=== PATIENT | female | born 1930 | race Caucasian/White ===

== ENCOUNTER 2018-11-07 05:32 | Emergency (ER) | payer MEDICARE ==
[~2018-11-07] VITALS: Wt 67.6 kg
--- NOTE | ~2018-11-07 | EKG ---
[place], [place] ELECTROCARDIOGRAM REPORT NAME: MEGAN NÚÑEZ UNIT #: [id number] ROOM: DOCTOR: YENY DRAFT REPORT BIRTHDATE: [birth year] [facility] Test Date: 2018-11-07 Test Time: 05:37:56 Pat Name: MEGAN NÚÑEZ Department: Room: Gender: F [employer]: : 1930 Requested By: ARSALAN SOLIZ Order Number: [id number] Reading MD: Eloisa Shell Measurements Intervals [place] Rate: 79 P: 77 TX: 126 QRS: 77 QRSD: 101 T: 76 QT: 396 QTc: 455 Interpretive Statements Sinus rhythm Nonspecific T abnrm, anterolateral leads No previous ECG available for comparison Electronically Signed On 11-07-2018 12:02:37 PDT by Eloisa Shell CM:EKGRPT:ELECTROCARDIOGRAM REPORT [id number] ARSALAN CHRISTIE DRAFT REPORT ARSALAN SOLIZ DO
[2018-11-07 05:55] LABS: BASO % 0.3 % (0.0-1.0); EOS # 0.3 10*3/uL (0.0-0.4); HEMATOCRIT 38.4 % (37.0-47.0); HEMOGLOBIN 12.1 g/dl (12.0-16.0); LYMPH # 1.4 10*3/uL (1.3-4.4); LYMPH % 21.2 % (27.0-41.0); MEAN CELL VOLUME 92.8 fl (81.0-99.0); MEAN CORPUSCULAR HGB 29.2 pg (27.0-31.0); MEAN CORPUSCULAR HGB CONC 31.5 g/dl (33.0-37.0); MEAN PLATELET VOLUME 9.5 fl (9.6-12.3); MONO # 0.9 10*3/uL (0.1-1.0); NEUT % 59.9 % (47.0-73.0); PLATELET COUNT AUTOMATED 291 10*3/uL (130-400); RED BLOOD COUNT 4.14 10*6/uL (4.10-5.10); RED CELL DISTRI WIDTH 13.8 % (0-14.5); WHITE BLOOD COUNT 6.6 10*3/uL (4.8-10.8)
[2018-11-07] MEDS ORDERED: ACETAMINOPHEN325 M2 PO (05:56)
[2018-11-07] MEDS ORDERED: METOPROLOL SUCC25 M2 PO (05:56)
[2018-11-07] MEDS ORDERED: EPIPEN 2-P0.3 MG/0.3 IM (05:58)
[2018-11-07 06:02] LABS: ALKALINE PHOSPHATASE 77 U/L (45-117); BUN 21 mg/dl (7-24); CHLORIDE 110 mmol/L (98-107); CREATININE 0.87 mg/dL (0.55-1.02); POTASSIUM 3.9 mmol/L (3.5-5.1); SGOT/AST 13 IU/L (3-35); SGPT/ALT 12 U/L (12-78); SODIUM 141 mmol/L (136-145)
[2018-11-07 06:07] LABS: TROPONIN I < 0.015 ng/ml (<0.045)
[2018-11-07 06:15] LABS: ACT PARTIAL THROMBO TIME 25.9 SECONDS (20.0-32.1)
== END 2018-11-07 12:18 | disposition home or self-care (01) ==
LOC: ED 05:32
PROVIDERS: Student in an Organized Health Care Education/Training Program
DX: S92.345A Nondisplaced fracture of fourth metatarsal bone, left foot, initial encounter for closed fracture (principal); S92.355A Nondisplaced fracture of fifth metatarsal bone, left foot, initial encounter for closed fracture; R07.9 Chest pain, unspecified; R06.02 Shortness of breath; Z88.2 Allergy status to sulfonamides; Z79.899 Other long term (current) drug therapy; W19.XXXA Unspecified fall, initial encounter; Y93.89 Activity, other specified; Y92.89 Other specified places as the place of occurrence of the external cause; Y99.8 Other external cause status

== ENCOUNTER → 2018-11-22 | Outpatient (CLI) | payer MEDICARE ==
[~2018-11-22] MED LIST: ACETAMINOPHEN325 M2 PO; EPIPEN 2-P0.3 MG/0.3 IM; METOPROLOL SUCC25 M2 PO
== END | disposition home or self-care (01) ==
LOC: RAD 15:19
DX: M19.072 Primary osteoarthritis, left ankle and foot (principal); M81.0 Age-related osteoporosis without current pathological fracture; S92.342A Displaced fracture of fourth metatarsal bone, left foot, initial encounter for closed fracture; X58.XXXA Exposure to other specified factors, initial encounter; Y93.89 Activity, other specified; Y92.89 Other specified places as the place of occurrence of the external cause; Y99.8 Other external cause status

== ENCOUNTER → 2018-12-16 | Outpatient (CLI) | payer MEDICARE | END | disposition home or self-care (01) | LOC: ORTHO 00:30 | DX: S92.302D Fracture of unspecified metatarsal bone(s), left foot, subsequent encounter for fracture with routine healing (principal); M81.0 Age-related osteoporosis without current pathological fracture; M19.072 Primary osteoarthritis, left ankle and foot; X58.XXXD Exposure to other specified factors, subsequent encounter ==

== ENCOUNTER → 2019-01-11 | Outpatient (CLI) | payer MEDICARE | END | disposition home or self-care (01) | LOC: CT 14:00 | DX: M48.061 Spinal stenosis, lumbar region without neurogenic claudication (principal); M47.897 Other spondylosis, lumbosacral region; M81.0 Age-related osteoporosis without current pathological fracture; I10 Essential (primary) hypertension ==

== ENCOUNTER → 2019-01-13 | Outpatient (CLI) | payer MEDICARE | END | disposition home or self-care (01) | LOC: ORTHO 02:45 | DX: S92.302D Fracture of unspecified metatarsal bone(s), left foot, subsequent encounter for fracture with routine healing (principal); X58.XXXD Exposure to other specified factors, subsequent encounter ==

== ENCOUNTER 2019-10-15 21:16 | Emergency (ER) | payer MEDICARE ==
[2019-10-15 22:36] LABS: BASO % 0.4 % (0.0-1.0); EOS # 0.3 10*3/uL (0.0-0.4); EOS % 3.7 % (1.0-4.0); HEMATOCRIT 40.5 % (37.0-47.0); LYMPH # 2.2 10*3/uL (1.3-4.4); LYMPH % 28.3 % (27.0-41.0); MEAN CELL VOLUME 95.1 fl (81.0-99.0); MEAN CORPUSCULAR HGB 30.3 pg (27.0-31.0); MEAN CORPUSCULAR HGB CONC 31.9 g/dl (33.0-37.0); MEAN PLATELET VOLUME 9.7 fl (9.6-12.3); MONO # 0.8 10*3/uL (0.1-1.0); MONO % 9.5 % (3.0-9.0); NEUT # 4.5 10*3/uL (2.3-7.9); NEUT % 57.7 % (47.0-73.0); PLATELET COUNT AUTOMATED 316 10*3/uL (130-400); RED BLOOD COUNT 4.26 10*6/uL (4.10-5.10); RED CELL DISTRI WIDTH 14.1 % (0-14.5); WHITE BLOOD COUNT 7.9 10*3/uL (4.8-10.8)
[2019-10-15 22:50] LABS: ALBUMIN 3.2 gm/dl (3.1-4.5); ALKALINE PHOSPHATASE 60 U/L (45-117); BUN 36 mg/dl (7-24); CHLORIDE 109 mmol/L (98-107); POTASSIUM 4.3 mmol/L (3.5-5.1); SGOT/AST 13 IU/L (3-35); SGPT/ALT 17 U/L (12-78); SODIUM 141 mmol/L (136-145); TOTAL PROTEIN 7.3 gm/dL (6.4-8.2)
[2019-10-15 22:51] LABS: TROPONIN I < 0.015 ng/ml (<0.045)
[2019-10-15 23:47] LABS: BILIRUBIN NEGATIVE (NEGATIVE); BLOOD NEGATIVE (NEGATIVE); CLARITY SL CLOUDY (CLEAR); COLOR YELLOW (YELLOW); GLUCOSE NEGATIVE (NEGATIVE); KETONE NEGATIVE (NEGATIVE); LEUKO ESTERASE TRACE (NEGATIVE); NITRITE NEGATIVE (NEGATIVE); UROBILINOGEN 0.2 E.U./dl (0.2-1.0)
[2019-10-15 23:48] LABS: BACTERIA 2+
[2019-10-16] MEDS ORDERED: MACROBID100 M1 PO (01:27)
== END 2019-10-16 02:10 | disposition left against medical advice (07) ==
LOC: ED 21:16
PROVIDERS: Emergency Medicine
DX: S72.001A Fracture of unspecified part of neck of right femur, initial encounter for closed fracture (principal); N39.0 Urinary tract infection, site not specified; R41.0 Disorientation, unspecified; Z88.2 Allergy status to sulfonamides; Z79.899 Other long term (current) drug therapy; W18.39XA Other fall on same level, initial encounter; Y93.89 Activity, other specified; Y92.128 Other place in nursing home as the place of occurrence of the external cause; Y99.8 Other external cause status

== ENCOUNTER 2019-11-18 21:26 | Inpatient (IN) | payer MEDICARE ==
[~2019-11-18] VITALS: Ht 167.6 cm; Wt 56.0 kg
[~2019-11-18 21:26] MED LIST changes: +MACROBID100 M1 PO
[2019-11-18 21:32] VITALS: BP 168/87
[2019-11-18 21:58] LABS: ACT PARTIAL THROMBO TIME 24.7 SECONDS (20.0-32.1)
[2019-11-18 22:03] LABS: BASO % 0.2 % (0.0-1.0); EOS # 0.2 10*3/uL (0.0-0.4); EOS % 2.5 % (1.0-4.0); HEMATOCRIT 41.9 % (37.0-47.0); LYMPH # 2.3 10*3/uL (1.3-4.4); MEAN CELL VOLUME 96.8 fl (81.0-99.0); MEAN PLATELET VOLUME 10.2 fl (9.6-12.3); MONO # 0.9 10*3/uL (0.1-1.0); MONO % 10.8 % (3.0-9.0); NEUT % 58.9 % (47.0-73.0); PLATELET COUNT AUTOMATED 249 10*3/uL (130-400); RED BLOOD COUNT 4.33 10*6/uL (4.10-5.10); RED CELL DISTRI WIDTH 14.1 % (0-14.5); WHITE BLOOD COUNT 8.5 10*3/uL (4.8-10.8)
[2019-11-18 22:04] LABS: ALBUMIN 3.4 gm/dl (3.1-4.5); BUN 29 mg/dl (7-24); CHLORIDE 109 mmol/L (98-107); CREATININE 0.94 mg/dL (0.55-1.02); POTASSIUM 4.6 mmol/L (3.5-5.1); SGOT/AST 25 IU/L (3-35); SGPT/ALT 16 U/L (12-78); SODIUM 140 mmol/L (136-145); TOTAL PROTEIN 7.9 gm/dL (6.4-8.2)
[2019-11-18 22:07] LABS: ALKALINE PHOSPHATASE 58 U/L (45-117); TROPONIN I < 0.015 ng/ml (<0.045)
[2019-11-18 22:13] VITALS: BP 141/67
[2019-11-19 00:46] LABS: BILIRUBIN NEGATIVE (NEGATIVE); BLOOD TRACE-INTACT (NEGATIVE); CLARITY CLOUDY (CLEAR); COLOR YELLOW (YELLOW); GLUCOSE NEGATIVE (NEGATIVE); KETONE NEGATIVE (NEGATIVE); LEUKO ESTERASE 2+ (NEGATIVE); NITRITE POSITIVE (NEGATIVE); SPECIFIC GRAVITY 1.015 (1.005-1.030); UROBILINOGEN 0.2 E.U./dl (0.2-1.0)
[2019-11-19 00:55] LABS: BACTERIA 4+
[2019-11-19 00:56] LABS: WBC TNTC wbc/hpf (0-5)
[2019-11-19 02:05] VITALS: BP 138/77
[2019-11-19] MEDS ORDERED: MEGACE40 MG PO (02:55)
[2019-11-19] MEDS ORDERED: VITAMIN C500 M4 PO (02:56)
[2019-11-19] MEDS ORDERED: ZINC50 M3 PO (02:57)
[2019-11-19] MEDS ORDERED: VITAMIN D375 MCG PO (02:57)
[2019-11-19] MEDS ORDERED: TRAMADOL HCL50 MG PO (02:58)
[2019-11-19 03:53] LABS: ALBUMIN 3.1 gm/dl (3.1-4.5); ALKALINE PHOSPHATASE 52 U/L (45-117); BUN 26 mg/dl (7-24); CHLORIDE 110 mmol/L (98-107); CREATININE 0.95 mg/dL (0.55-1.02); SGOT/AST 15 IU/L (3-35); SGPT/ALT 10 U/L (12-78); SODIUM 141 mmol/L (136-145)
[2019-11-19 06:25] LABS: BASO % 0.3 % (0.0-1.0); EOS # 0.2 10*3/uL (0.0-0.4); EOS % 2.5 % (1.0-4.0); LYMPH # 2.2 10*3/uL (1.3-4.4); LYMPH % 24.5 % (27.0-41.0); MEAN CELL VOLUME 94.9 fl (81.0-99.0); MEAN CORPUSCULAR HGB 29.4 pg (27.0-31.0); MEAN PLATELET VOLUME 9.5 fl (9.6-12.3); MONO # 0.9 10*3/uL (0.1-1.0); MONO % 10.5 % (3.0-9.0); NEUT # 5.5 10*3/uL (2.3-7.9); PLATELET COUNT AUTOMATED 316 10*3/uL (130-400); RED BLOOD COUNT 4.11 10*6/uL (4.10-5.10); WHITE BLOOD COUNT 8.9 10*3/uL (4.8-10.8)
[2019-11-19 08:00] VITALS: BP 135/80; BP 142/92
[2019-11-19 12:00] VITALS: BP 146/61
[2019-11-19 16:00] VITALS: BP 98/50
[2019-11-19 16:05] LABS: BASO % 0.3 % (0.0-1.0); EOS # 0.3 10*3/uL (0.0-0.4); EOS % 3.9 % (1.0-4.0); HEMATOCRIT 40.9 % (37.0-47.0); LYMPH # 1.7 10*3/uL (1.3-4.4); LYMPH % 22.2 % (27.0-41.0); MEAN CELL VOLUME 94.9 fl (81.0-99.0); MEAN CORPUSCULAR HGB 29.7 pg (27.0-31.0); MEAN CORPUSCULAR HGB CONC 31.3 g/dl (33.0-37.0); MEAN PLATELET VOLUME 9.3 fl (9.6-12.3); MONO # 0.8 10*3/uL (0.1-1.0); MONO % 10.1 % (3.0-9.0); NEUT # 4.9 10*3/uL (2.3-7.9); NEUT % 63.2 % (47.0-73.0); PLATELET COUNT AUTOMATED 314 10*3/uL (130-400); RED BLOOD COUNT 4.31 10*6/uL (4.10-5.10); RED CELL DISTRI WIDTH 13.9 % (0-14.5); WHITE BLOOD COUNT 7.8 10*3/uL (4.8-10.8)
[2019-11-19 20:00] VITALS: BP 128/69
[2019-11-20] VITALS: BP 129/78
[2019-11-20 08:00] VITALS: BP 139/75
[2019-11-20 12:00] VITALS: BP 118/75
[2019-11-20] MEDS ORDERED: LEVAQUIN750 M1 PO (13:07)
[2019-11-20] MEDS ORDERED: TRAMADOL HCL50 MG PO (13:08)
== END 2019-11-20 16:35 | disposition home or self-care (01) | DRG 190 ==
LOC: ED 21:26 → 4E 11-19 01:16 → EDHOLD 11-19 01:16 → 4E 11-19 01:46
PROVIDERS: Emergency Medicine Emergency Medical Services; Internal Medicine; Student in an Organized Health Care Education/Training Program; ADMIT Family Medicine
DX: J44.1 Chronic obstructive pulmonary disease with (acute) exacerbation (principal); N17.0 Acute kidney failure with tubular necrosis; E44.0 Moderate protein-calorie malnutrition; N30.01 Acute cystitis with hematuria; Z68.1 Body mass index [BMI] 19.9 or less, adult; E87.8 Other disorders of electrolyte and fluid balance, not elsewhere classified; B96.89 Other specified bacterial agents as the cause of diseases classified elsewhere; E83.41 Hypermagnesemia; F03.90 Unspecified dementia, unspecified severity, without behavioral disturbance, psychotic disturbance, mood disturbance, and anxiety; H91.13 Presbycusis, bilateral; N18.3 Chronic kidney disease, stage 3 (moderate); Z88.2 Allergy status to sulfonamides; Z87.440 Personal history of urinary (tract) infections; Z79.899 Other long term (current) drug therapy

== ENCOUNTER 2020-10-28 13:16 | Inpatient (IN) | payer MEDICARE ==
[~2020-10-28] VITALS: Wt 57.2 kg
[~2020-10-28 13:16] MED LIST changes: +CEFUROXIME AXE500 MG PO; +HYDROXYZINE PAM25 M1 PO; +LEVAQUIN750 M1 PO; +MEGACE40 MG PO; +RISPERDAL0.5 MG PO; +RISPERIDONE M-0.5 MG PO; +RIVASTIGMINE1 EACH T; +TRAMADOL HCL50 MG PO; +VITAMIN B12-FO1 EACH PO; +VITAMIN C500 M4 PO; +VITAMIN D375 MCG PO; +ZINC50 M3 PO
[2020-10-28] MEDS ORDERED: RISPERIDONE M-0.5 MG OGT (13:27)
[2020-10-28 16:49] VITALS: BP 122/69
[2020-10-28 20:00] VITALS: BP 145/62
[2020-10-29 06:20] LABS: BASO % 0.5 % (0.0-1.0); EOS # 0.3 10*3/uL (0.0-0.4); EOS % 4.9 % (1.0-4.0); HEMATOCRIT 36.8 % (37.0-47.0); LYMPH # 1.5 10*3/uL (1.3-4.4); LYMPH % 26.5 % (27.0-41.0); MEAN CELL VOLUME 89.5 fl (81.0-99.0); MEAN CORPUSCULAR HGB 28.5 pg (27.0-31.0); MEAN CORPUSCULAR HGB CONC 31.8 g/dl (33.0-37.0); MEAN PLATELET VOLUME 9.9 fl (9.6-12.3); MONO # 0.7 10*3/uL (0.1-1.0); MONO % 12.6 % (3.0-9.0); NEUT # 3.1 10*3/uL (2.3-7.9); NEUT % 55.3 % (47.0-73.0); PLATELET COUNT AUTOMATED 287 10*3/uL (130-400); RED BLOOD COUNT 4.11 10*6/uL (4.10-5.10); RED CELL DISTRI WIDTH 14.6 % (0-14.5); WHITE BLOOD COUNT 5.5 10*3/uL (4.8-10.8)
[2020-10-29 06:32] LABS: ALKALINE PHOSPHATASE 79 U/L (45-117); BUN 17 mg/dl (7-24); CHLORIDE 108 mmol/L (98-107); CHOLESTEROL 231 mg/dL (<200); CREATININE 0.73 mg/dL (0.55-1.02); LDL CHOLESTEROL 174 mg/dL (9-159); POTASSIUM 3.9 mmol/L (3.5-5.1); SGOT/AST 16 IU/L (3-35); SGPT/ALT 11 U/L (12-78); SODIUM 138 mmol/L (136-145); TOTAL PROTEIN 6.7 gm/dL (6.4-8.2); TRIGLYCERIDES 89 mg/dl (<150)
[2020-10-29 07:13] LABS: VITAMIN D, 25-HYDROXY 53.4 ng/mL (30-100)
[2020-10-29 07:24] VITALS: BP 116/58
[2020-10-29 13:14] VITALS: BP 116/58
[2020-10-29 20:00] VITALS: BP 114/65
[2020-10-30 07:56] VITALS: BP 122/59
[2020-10-30 20:00] VITALS: BP 112/72
[2020-10-31 07:37] VITALS: BP 116/78
[2020-10-31 20:00] VITALS: BP 134/61
[2020-11-01 07:50] VITALS: BP 110/67
[2020-11-01 20:00] VITALS: BP 100/54
[2020-11-02 07:31] VITALS: BP 126/67
[2020-11-02 15:40] LABS: BILIRUBIN Negative (Negative); BLOOD Negative (Negative); CLARITY Turbid (Clear); COLOR Dark Yellow (Yellow); GLUCOSE Negative (Negative); KETONE Trace (Negative); LEUKO ESTERASE Trace (Negative); NITRITE Negative (Negative); PH 5.5 (4.5-8.0); SPECIFIC GRAVITY 1.025 (1.001-1.030)
[2020-11-02 15:46] LABS: BACTERIA 1+; EPITHELIAL CELLS TNTC; HYALINE CAST TNTC; MUCOUS TRACE; RBC 0-2 rbc/hpf (0-2)
[2020-11-02 20:00] VITALS: BP 114/60
[2020-11-03 07:17] VITALS: BP 116/68
[2020-11-03 20:00] VITALS: BP 112/69
[2020-11-04 07:04] VITALS: BP 140/70
[2020-11-04 07:06] VITALS: BP 116/70
[2020-11-04 20:00] VITALS: BP 111/84
[2020-11-05 07:16] VITALS: BP 119/54
[2020-11-05 20:00] VITALS: BP 114/57
[2020-11-06 07:33] VITALS: BP 108/61
[2020-11-06] MEDS ORDERED: MEMANTINE HCL10 MG PO (09:21)
[2020-11-06] MEDS ORDERED: RIVASTIGMINE1 EAC2 T (09:21)
[2020-11-06] MEDS ORDERED: RISPERIDONE M-TA1 MG PO ×2 (09:21)
== END 2020-11-06 10:22 | DRG 883 ==
LOC: 3N 13:16
PROVIDERS: ADMIT Psychiatry & Neurology Psychiatry; ATTEND Psychiatry & Neurology Psychiatry
DX: F63.81 Intermittent explosive disorder (principal); N39.0 Urinary tract infection, site not specified; F03.91 Unspecified dementia, unspecified severity, with behavioral disturbance; F22 Delusional disorders; H91.13 Presbycusis, bilateral; I10 Essential (primary) hypertension; D64.9 Anemia, unspecified; Z88.2 Allergy status to sulfonamides; Z88.6 Allergy status to analgesic agent; Z91.030 Bee allergy status; Z79.899 Other long term (current) drug therapy

== ENCOUNTER 2021-01-11 11:33 | Emergency (ER) | payer MEDICARE ==
[~2021-01-11 11:33] MED LIST changes: +MEMANTINE HCL10 MG PO; +RISPERIDONE M-0.5 MG OGT; +RISPERIDONE M-TA1 MG PO; +RIVASTIGMINE1 EAC2 T
== END 2021-01-11 11:36 ==
LOC: ED 11:33
DX: I46.9 Cardiac arrest, cause unspecified (principal); Z91.030 Bee allergy status; Z88.2 Allergy status to sulfonamides; Z88.6 Allergy status to analgesic agent; Z79.899 Other long term (current) drug therapy